=== PATIENT | female | born 1990 | race African-American/Black ===

== ENCOUNTER 2017-07-30 20:29 | Emergency (ER) | payer MEDICAID ==
[~2017-07-30] VITALS: Ht 154.9 cm; Wt 59.0 kg
[2017-07-30] MEDS ORDERED: Methocarbamol 750mg tab ORAL ONE (21:00)
[2017-07-30] MEDS ORDERED: ROBAXIN-750750 MG PO (21:00)
[2017-07-30] MEDS ORDERED: IBUPROFEN600 MG ORAL (21:00)
[2017-07-30 21:36] VITALS: BP 91/59
[2017-07-30] MEDS ORDERED: Norco 10mg/325mg tab ORAL ONE (21:45)
--- NOTE | 2017-07-30 22:16 | Emergency Room Report ---
History of Present Illness General Chief Complaint: Back Pain-No Injury Source: Patient Present Illness HPI 27-year-old female, history of chronic back pain, ever since her epidural that was in 2011, p/w back pain for 1 day. Patient states pain started gradually. Pain is localized to right sided lower back, sharp in nature, radiating down leg. Movement worsens pain. Patient states that standing up makes the pain better. Patient took pain medications with minimal relief. Patient has experienced this similar pain in the past. Denies trauma. Denies lower extremity weakness/numbness, no bowel/bladder retention or incontinence, saddle anesthesia. Denies fever, chills, abdominal pain, n/v, dysuria/hematuria. No history of IVDA Allergies: Coded Allergies: No Known Allergies (Unverified , 07/30/17) Patient History Past Medical History: see triage record Past Surgical History: none Pertinent Family History: none Reviewed Nursing Documentation: PMH: Agreed, PSxH: Agreed Nursing Documentation-PMH Past Medical History: No Stated History Review of Systems All Other Systems: negative except mentioned in HPI Physical Exam Vital Signs Date Time Temp Pulse Resp B/P (MAP) Pulse Ox O2 Delivery O2 Flow Rate FiO2 07/30/17 20:15 100.6 100 20 91/59 99 Room Air Sp02 EP Interpretation: reviewed, normal General Appearance: alert, GCS 15, non-toxic, moderate distress Head: normocephalic, atraumatic Eyes: bilateral eye normal inspection, bilateral eye PERRL, bilateral eye EOMI ENT: normal ENT inspection, normal pharynx, normal voice, moist mucus membranes Neck: normal inspection, full range of motion, supple Respiratory: normal inspection, lungs clear, normal breath sounds, no respiratory distress, no retraction, no wheezing, speaking full sentences, chest symmetrical Cardiovascular #1: normal inspection, regular rate, rhythm, no edema, normal capillary refill Cardiovascular #2: 2+ radial (R), 2+ radial (L) Gastrointestinal: normal inspection, non tender, soft, non-distended, no guarding Genitourinary: other - +R sided cva tenderness Musculoskeletal: other - midline lower lumbar and R sided paraspinal tendenress Neurologic: normal inspection, alert, oriented x3, responsive, motor strength/ tone normal, sensory intact, normal gait, speech normal Psychiatric: normal inspection, judgement/insight normal, memory normal Skin: normal inspection, normal color, no rash, warm/dry, well hydrated, normal turgor Medical Decision Making Diagnostic Impression: Primary Impression: Back pain Additional Impression: Pyelonephritis ER Course 27-year-old female presents to pain, fever DDX: Likely musculoskeletal back pain vs. muscular strain vs. sciatica Also as fever, CVA tenderness, pyelonephritis Lumbar fracture is unlikely given patients age, no midline tenderness, no history of trauma, and that patient is ambulatory. Therefore, at this time no imaging is indicated Serious diagnoses such as cord compression unlikely in this patient as there is no neurological signs or symptoms epidural abscess also a possibility, however no risk factors, no history of IV drug abuse Plan: Labs, UA, pain control ER course: Patient has remained nontoxic appearing and ambulatory in the ED. Pain improved w/ medications UA positive: Will discharge with Keflex Disposition: Patient will be discharged to home with prescription of Keflex, Motrin, Robaxin Patient cautioned of the effects of robaxin including possible impairment of physical or mental abilities. Patient was instructed to refrain from operating machinery or driving. Patient is also cautioned on the GI effects of motrin and to take sparingly. Patient verbalized understanding. Strict precautions discussed with patient on when to emergently return to the ED which includes severe/worsening back pain, leg weakness/numbness, urinary retention/incontinence, fever or chills, which may indicate severe illness. Patient is to follow up with their PMD within 5 days. Patient agrees with plan. Please note that this Emergency Department Report was dictated using [employer] technology software, occasionally this can lead to erroneous entry secondary to interpretation by the dictation equipment. Last Vital Signs Date Time Temp Pulse Resp B/P (MAP) Pulse Ox O2 Delivery O2 Flow Rate FiO2 07/30/17 21:36 100.6 20 91/59 99 Room Air 07/30/17 20:15 100 Disposition: HOME, SELF-CARE Condition: Improved Scripts Cephalexin* (KEFLEX*) 500 Mg Capsule 500 MG ORAL Q6H for 7 Days, #28 CAP 0 Refills Prov: Retino,Clairose M.D. 07/30/17 Ibuprofen* (MOTRIN*) 600 Mg Tablet 600 MG ORAL Q8H Y for For Pain, #30 TAB 0 Refills Prov: Retino,Clairose M.D. 07/30/17 Methocarbamol* (ROBAXIN-750*) 750 Mg Tablet 750 MG PO QID, #28 TAB 0 Refills Prov: Radha Lange M.D. 07/30/17 Patient Instructions: Back Pain, Adult Radha Lange M.D. Jul 30, 2017 22:16
[2017-07-30] MEDS ORDERED: Morphine Sulfate 4mg/ml Inj IVP ONE (22:30)
[2017-07-30 22:41] LABS: BASOPHILS % (AUTO) 1.8 % (0.0-2.0); EOSINOPHILS % (AUTO) 2.7 % (0.0-3.0); LYMPHOCYTES % (AUTO) 15.4 % (20.0-45.0); MEAN CORPUSCULAR HEMOGLOBIN 28.4 PG (27.0-31.0); MEAN CORPUSCULAR HGB CONC 30.7 G/DL (32.0-36.0); MEAN CORPUSCULAR VOLUME 92 FL (80-99); MEAN PLATELET VOLUME 6.1 FL (6.5-10.1); MONOCYTES % (AUTO) 4.6 % (1.0-10.0); NEUTROPHILS % (AUTO) 75.6 % (45.0-75.0); PLATELET COUNT 278 K/UL (150-450); RED CELL DISTRIBUTION WIDTH 12.1 % (11.6-14.8); WHITE BLOOD COUNT 7.3 K/UL (4.8-10.8)
[2017-07-30 22:47] LABS: ANION GAP 9 mmol/L (5-15); APPEARANCE,URINE SLIGHTLY CLOUDY; CALCIUM 9.2 MG/DL (8.5-10.1); CARBON DIOXIDE 26 MMOL/L (21-32); CHLORIDE 102 MMOL/L (98-107); CREATININE 1.1 MG/DL (0.55-1.30); GLOMERULAR FILTRATION RATE 58.7 mL/min (>60); KETONES,URINE 1+ (NEGATIVE); LEUKOCYTE ESTERASE ,URINE 2+ (NEGATIVE); NITRITE,URINE NEGATIVE (NEGATIVE); PH,URINE 5 (4.5-8.0); POTASSIUM 3.8 MMOL/L (3.5-5.1); PROTEIN,URINE 3+ (NEGATIVE); SODIUM 136 MMOL/L (136-145); UROBILINOGEN,URINE 4 MG/DL (0.0-1.0)
[2017-07-30 22:52] LABS: ALANINE AMINOTRANSFERASE 27 U/L (12-78); ASPARTATE AMINO TRANSFERASE 20 U/L (15-37)
[2017-07-30 23:02] LABS: AMORPHOUS SEDIMENT,UR FEW /LPF; BACTERIA,URINE MODERATE /HPF; ICTOTEST NEGATIVE; SQUAMOUS EPITHELIAL CELL,UR MODERATE /LPF (NONE/OCC)
[2017-07-30] MEDS ORDERED: KEFLEX500 MG ORAL (23:06)
[2017-07-30] MEDS ORDERED: Cephalexin 500mg cap ONE (23:11)
[2017-07-30 23:15] VITALS: BP 105/77
[2017-07-30] MEDS ORDERED: Cephalexin 500mg cap ORAL ONE (23:15)
== END 2017-07-30 23:15 | disposition home or self-care (01) ==
LOC: EDBD 20:29 → EMR 20:35
DX: M54.5 Low back pain (principal); G89.29 Other chronic pain; N12 Tubulo-interstitial nephritis, not specified as acute or chronic
CPT/HCPCS: 36415; 80053; 81003; 81025; 83605; 85025; 85651; 86140; 87040; 87086; 96361; 96374; 99284; J2270